=== PATIENT | male | born 1985 | race Caucasian/White ===

== ENCOUNTER 2017-02-23 15:12 | Inpatient (IN) ==
--- NOTE | 2017-02-23 15:20 | Emergency Department Note ---
Disposition Clinical Impression: Facial cellulitis Disposition: Admitted As Inpatient Condition: Good Referrals: Hans Flynn DO [Primary Care Provider] - Forms: ED Satisfaction Letter Time of Disposition: 16:11 General Adult HPI - General Chief complaint: ED Recheck/Abnormal Lab/Rx Stated complaint: Facial swelling Time Seen by Provider: 02/23/17 15:16 Source: patient Limitations: no limitations Nursing Notes Reviewed: Yes Vital Signs Reviewed: Yes - History of Present Illness HPI Narrative: 31-year-old male who was seen yesterday for facial swelling especially on the left. CT scan done yesterday was negative for acute findings lab work was all negative. He is placed on antibiotics states the swelling is worse. Pt Subjective Complaint: Swelling of the left region that has gotten progressively worse now affecti Onset (ago): day(s) Location: face Radiation: non-radiation Pain Severity: moderate Pain Scale: 7 Quality: aching Consistency: constant Improves with: nothing Worsens with: other (Time) - Related Data Previous Rx's Medication Instructions Recorded Levofloxacin [Levaquin] 500 mg PO DAILY #10 tablet 02/23/17 OxyCODONE/APAP 5/325 [Percocet 1 each PO Q6HR PRN #10 tablet 02/23/17 5/325 MG] Allergies Allergy/AdvReac Type Severity Reaction Status Date / Time Penicillins Allergy Hives Verified 02/23/17 06:58 All systems ED: reviewed and negative except as stated. Constitutional: Denies: fever, chills, weakness, weight change Eyes: Denies: eye pain, eye discharge, vision change ENT ED: Reports: other (Facial swelling and discomfort). Denies: ear pain, throat pain, dental pain, hearing loss, epistaxis, congestion, dysphagia Cardiovascular: Denies: chest pain, palpitations, dyspnea on exertion, edema, syncope Respiratory: Denies: cough, dyspnea, wheezes, hemoptysis, stridor Gastrointestinal: Denies: abdominal pain, nausea, vomiting, diarrhea, constipation, hematemesis, melena, hematochezia Genitourinary: Denies: urgency, dysuria, frequency, hematuria Musculoskeletal: Denies: back pain, neck pain, arthralgia, myalgia Integumentary: Denies: rash, abrasion, lesions Neurological: Denies: headache, weakness, numbness, paresthesias, confusion, abnormal gait, vertigo Psychiatric: Denies: anxiety, depression, suicidal thoughts, homicidal thoughts , auditory hallucinations, visual hallucinations Endocrine: Denies: fatigue Hematological/Lymphatic: Denies: easy bleeding, easy bruising Allergic/Immunologic: Denies: facial swelling, urticaria Past Medical History - Past Medical History Medical history: Reports: no medical history Psychiatric history: Reports: no psych history - Social History Smoking Status: Never smoker Smokeless Tobacco Status: Yes Alcohol use: Reports: none Drug use: Reports: none Physical Exam - General Limitations: no limitations General appearance: alert, in no apparent distress - Head Head exam: atraumatic, normocephalic, normal inspection - Eye Eye exam: Present: other (Infraorbital swelling) - ENT ENT exam: normal exam, normal oropharynx, mucous membranes moist - Neck Neck exam: Present: normal inspection, full ROM, trachea midline - Chest Chest inspection: Present: normal inspection - Respiratory Respiratory exam: Present: normal lung sounds bilaterally - Cardiovascular Cardiovascular exam: Present: regular rate, normal rhythm, normal heart sounds - Abdominal Exam Abdominal exam: Present: soft, Non-Tender. Absent: tenderness, distention, guarding, rebound, rigidity - Extremities Exam Extremities exam: Present: normal inspection, full ROM. Absent: tenderness, pedal edema - Expanded Lower Extremity Exam Neurovascular/Tendon exam: Absent: motor deficit, sensory deficit, tendon deficit Gait: observed and normal - Back Exam Back exam: Present: normal inspection, full ROM. Absent: tenderness - Neurological Exam Neurological exam: Present: alert, oriented X3 - Psychiatric Psychiatric exam: Present: normal affect, normal mood - Skin Skin exam: Present: warm, dry, intact, normal color Course - Reevaluation(s) Reevaluation #1: Patient with left-sided facial swelling is getting worse. CT scan yesterday showed no drainable abscess. Patient was evaluated by ENT who recommended admission and IV antibiotics. Nothing amenable to drainage at this time. Time: 16:10 - Consultations Consultation #1: Discussed with Dr. Cannon, ENT who came in and saw the patient, recommends admission for IV antibiotics and IV steroids. Time: 15:25 Consultation #2: Discussed with Dr. Gonzalez, admit Time: 16:11 Vital Signs Temperature 98.4 F 02/23/17 15:12 Pulse Rate 68 02/23/17 15:12 Respiratory Rate 18 02/23/17 15:12 Blood Pressure 173/103 02/23/17 15:12 O2 Sat by Pulse Oximetry 97 02/23/17 15:12 Temperature 98.4 F 02/23/17 15:12 Pulse Rate 68 02/23/17 15:12 Respiratory Rate 18 02/23/17 15:12 Blood Pressure 173/103 02/23/17 15:12 O2 Sat by Pulse Oximetry 97 02/23/17 15:12 Oxygen Delivery Oxygen Delivery Room Air Medical Decision Making - Lab Data Result diagrams: 02/23/17 15:43 02/23/17 15:43 Lab Results 02/23/17 02/23/17 02/23/17 Range/Units 15:43 15:43 15:43 WBC 8.1 (4.3-11.1) K/mcL RBC 4.63 (4.19-5.50) M/mcL Hgb 13.8 (12.9-16.9) g/dL Hct 42.3 (37.5-50.1) % MCV 91.4 (83.0-100.0) fL MCH 29.8 (28.0-33.3) pg MCHC 32.6 (31.6-35.5) g/dL RDW 12.5 (11.5-14.5) % Plt Count 177 (140-400) K/mcL MPV 10.9 (9.4-12.4) fL Immature Gran % 0.2 (0-4) % Seg Neutrophils % 74.7 % Lymphocytes % 17.6 % Monocytes % 6.3 % Eosinophils % 0.6 % Basophils % 0.6 % Neutrophils # 6.0 (1.6-8.9) K/mcL Lymphocytes # 1.4 (0.6-4.6) K/mcL Monocytes # 0.5 (0.0-1.3) K/mcL Eosinophils # 0.1 (0.0-0.6) K/mcL Basophils # 0.1 (0.0-0.2) K/mcL Immature Plt Fraction 6.1 (1.1-6.1) % ESR 35 H (0-10) mm/hr Sodium 137 (136-145) mEq/L Potassium 3.9 (3.5-4.5) mEq/L Chloride 105 (98-109) mEq/L Carbon Dioxide 25 (19-29) mEq/L BUN 11 (8-26) mg/dL Creatinine 0.86 (0.72-1.25) mg/dL Est GFR ( Amer) > 60 (> 60) Est GFR (Non-Af Amer) > 60 (> 60) BUN/Creatinine Ratio 13 (6-26) Glucose 136 H (70-99) mg/dL Calculated Osmolality 285 (280-300) Calcium 8.4 L (8.6-10.8) mg/dL
[2017-02-23 15:50] LABS: Basophils # 0.1 K/mcL (0.0-0.2); Basophils % 0.6 %; Eosinophils # 0.1 K/mcL (0.0-0.6); Eosinophils % 0.6 %; Hematocrit 42.3 % (37.5-50.1); Hemoglobin 13.8 g/dL (12.9-16.9); Immature Granulocytes % 0.2 % (0-4); Immature Platelets 6.1 % (1.1-6.1); Lymphocytes # 1.4 K/mcL (0.6-4.6); Lymphocytes % 17.6 %; Mean Corpuscular HGB Conc 32.6 g/dL (31.6-35.5); Mean Corpuscular Hemoglobin 29.8 pg (28.0-33.3); Mean Corpuscular Volume 91.4 fL (83.0-100.0); Mean Platelet Volume 10.9 fL (9.4-12.4); Monocytes # 0.5 K/mcL (0.0-1.3); Monocytes % 6.3 %; Platelet Count 177 K/mcL (140-400); Red Blood Count 4.63 M/mcL (4.19-5.50); Red Cell Distribution Width 12.5 % (11.5-14.5); Segmented Neutrophils % 74.7 %
[2017-02-23 16:01] LABS: BUN/Creatinine Ratio 13 (6-26); Blood Urea Nitrogen 11 mg/dL (8-26); Calcium 8.4 mg/dL (8.6-10.8); Carbon Dioxide 25 mEq/L (19-29); Chloride 105 mEq/L (98-109); Glucose 136 mg/dL (70-99); Osmolality,Calculated 285 (280-300); Potassium 3.9 mEq/L (3.5-4.5); Sodium 137 mEq/L (136-145); eGFR For African Americans > 60 (> 60); eGFR For Non-African Americans > 60 (> 60)
[2017-02-23] MEDS ORDERED: Levofloxacin 750 MG/150 ML 750 MG/150 ML BAG IVPB ONE (16:05)
--- NOTE | 2017-02-23 16:05 | ENT - Consult Note ---
Date of Encounter: 02/23/17 Time of Encounter: 15:45 Assessment and Plan (1) Facial cellulitis Current Visit: Yes Status: Acute White male with several days of progression of left facial swelling at site of buccal space possible early cellulitis which may abscess because of proximity to danger zone consider IV antibiotics if not improved consider a consult in ENT for possible consideration for incision and drainage also the integrity of the left maxillary teeth might need to be considered with full dental evaluation after taking care of the initial problem I will inform the ENT clinic of this patient's admission History of Present Illness Consult date: 02/23/17 History of present illness: 31-year-old white male with several days of left-sided swelling was seen in the emergency room yesterday had a white count which was unremarkable and CT that was read as unremarkable revealing a little bit of swelling in the left anterior face the site of the swelling and tenderness was most consistent with a buccal cellulitis early abscess but the teeth are unremarkable recommending at this point consideration of IV antibiotics because patient has tried Cefdinir and by mouth Levaquin without improvement recommending admission with trial of Levaquin and steroids and pain medications Past Med Surg Social Fam HX - Past Medical History Medical history: no medical history Psychiatric history: no psych history - Social History Smoking Status: Never smoker Smokeless Tobacco Status: Yes Alcohol use: none Drug use: none Medications and Allergies Levofloxacin [Levaquin] 500 mg PO DAILY #10 tablet 02/23/17 [Rx] OxyCODONE/APAP 5/325 [Percocet 5/325 MG] 1 each PO Q6HR PRN #10 tablet 02/23/17 [Rx] 3 Allergy/AdvReac Type Severity Reaction Status Date / Time Penicillins Allergy Hives Verified 02/23/17 06:58 ENT Exam Initial Vital Signs Temp Pulse Resp BP Pulse Ox 98.4 F 68 18 173/103 97 02/23/17 15:12 02/23/17 15:12 02/23/17 15:12 02/23/17 15:12 02/23/17 15:12 - General physical appearance well developed, well nourished, no distress, no pain, other (Left facial swelling and firmness with no obvious abscess CT yesterday no obvious abscess). negative: moderate distress, severe distress, moderate pain, severe pain, cachectic, obese - Eyes PERRL, normal ocular movement, icteric - ENT normal pinna, normal nares, normal mucosa, no hearing loss, no congestion. negative: decreased hearing, deviated nasal septum, nasal discharge, poor fpc, dentures, mucosal exudate, dry mucosa - Neck no masses, trachea midline, no lymphadectomy. negative: deviated trachea, diffuse goiter, limited ROM - Respiratory normal expansion, normal respiratory effort, clear to percussion, clear to auscultation - Abdomen Abdomen: soft, non tender, bowel sounds, no tender, no surgical scars - Integumentary no rash, no growths, no abnormal pigmentation - Neurologic normal coordination, normal sensation - Musculoskeletal normal gait, normal posture Exam Initial Vital Signs Temp Pulse Resp BP Pulse Ox 98.4 F 68 18 173/103 97 02/23/17 15:12 02/23/17 15:12 02/23/17 15:12 02/23/17 15:12 02/23/17 15:12 Results - Labs 02/23/17 15:43 02/23/17 15:43 Abnormal lab results ESR 35 mm/hr (0-10) H 02/23/17 15:43 Glucose 136 mg/dL (70-99) H 02/23/17 15:43 Calcium 8.4 mg/dL (8.6-10.8) L 02/23/17 15:43 Diabetes panel 02/23/17 Range/Units 15:43 Sodium 137 (136-145) mEq/L Potassium 3.9 (3.5-4.5) mEq/L Chloride 105 (98-109) mEq/L Carbon Dioxide 25 (19-29) mEq/L BUN 11 (8-26) mg/dL Creatinine 0.86 (0.72-1.25) mg/dL Glucose 136 H (70-99) mg/dL Calcium 8.4 L (8.6-10.8) mg/dL Calcium panel 02/23/17 Range/Units 15:43 Calcium 8.4 L (8.6-10.8) mg/dL Pituitary panel 02/23/17 Range/Units 15:43 Sodium 137 (136-145) mEq/L Potassium 3.9 (3.5-4.5) mEq/L Chloride 105 (98-109) mEq/L Carbon Dioxide 25 (19-29) mEq/L BUN 11 (8-26) mg/dL Creatinine 0.86 (0.72-1.25) mg/dL Glucose 136 H (70-99) mg/dL Calcium 8.4 L (8.6-10.8) mg/dL Adrenal panel 02/23/17 Range/Units 15:43 Sodium 137 (136-145) mEq/L Potassium 3.9 (3.5-4.5) mEq/L Chloride 105 (98-109) mEq/L Carbon Dioxide 25 (19-29) mEq/L BUN 11 (8-26) mg/dL Creatinine 0.86 (0.72-1.25) mg/dL Glucose 136 H (70-99) mg/dL Calcium 8.4 L (8.6-10.8) mg/dL All other labs normal. Consult Discharge Plan - Plan
[2017-02-23] MEDS ORDERED: Dexamethasone 4 MG/ML VIAL IVP ONE (16:13)
[2017-02-23] MEDS ORDERED: 0.9 % Sodium Chloride 1,000 ML IVC SCH (17:30)
[2017-02-23] MEDS ORDERED: Acetaminophen 325 MG TABLET PO PRN (19:29)
[2017-02-23] MEDS ORDERED: Ondansetron 4 MG/2 ML VIAL IVP PRN (19:29)
[2017-02-23] MEDS ORDERED: Naloxone 0.4 MG/ML INJ IVP PRN (19:29)
[2017-02-23] MEDS ORDERED: *HR* Morphine 2 MG/ML SYRINGE IVP PRN (19:29)
--- NOTE | 2017-02-23 19:42 | Internal Med History&Physical ---
Date of Encounter: 02/23/17 Time of Encounter: 19:30 Assessment and Plan (1) Facial cellulitis Current visit: Yes Status: Acute Acute left facial cellulitis without abscess - unclear etiology Continue empiric IV Vancomycin, IV Levaquin, IV fluids, Ibuprofen PRN Patient is allergic to penicillins IV Solu-Medrol as recommended by ENT Facial CT - no evidence for acute abnormality, no abnormality of soft tissues ESR - 35 WBC - 8.1 Blood cultures - pending ENT consult - Dr. Cannon has evaluated patient Labs in a.m., monitor closely (2) DVT prophylaxis Current visit: Yes Status: Acute Heparin subcutaneous Internal Medicine - H&P: HPI Chief complaint: Left facial pain and swelling Admitted From: Emergency Dept Plans for Post Hospital Care: Home History of present illness: Mr. Rhodes is a 31 year old male with no significant past medical history. Patient presents to the ED with complaints of pain and swelling over the left side of his face and left eye. Examined in the room. Patient is awake and alert. Not in any distress. Able to provide all history. No family members at bedside. Patient states he developed left-sided facial pain about 4-5 days ago. He was initially taking Clindamycin which was prescribed from a previous surgery, and this did not help. Patient initially came to the ED earlier this morning, was prescribed Levaquin and then discharged home. Patient returned in the afternoon with worsening swelling of the left side of his face extending to his left eye. Patient rates the pain 6/10. Symptoms are gradually worsening. Describes the pain as burning. She also complains of redness. He denies having any recent dental procedures. He states he last dental procedure he had was in May of this year. He denies any insect bite or trauma or injury. He denies any tooth pain or gingival problems. Denies chest pain or shortness of breath. Denies fever. No abdominal pain or vomiting or diarrhea. No aggravating or alleviating factors. No other associated symptoms. No other acute complaints. Initial workup in the ED is negative. Facial CT done earlier today does not show any acute abnormality of the face, CT is unremarkable. Patient is being admitted for left facial cellulitis. He will need IV antibiotic. Patient is allergic to penicillin. We will continue IV Vancomycin and IV Levaquin. Patient has been explained about his condition and plan of care in detail. He understood and agreed. No unanswered questions. CODE STATUS full code. Past Med Surg Social Fam HX - Past Medical History Medical history: no medical history Psychiatric history: no psych history - Past Surgical History Surgical History: other (Lumbar fusion) - Social History Smoking Status: Never smoker Smokeless Tobacco Status: Yes Alcohol use: none Drug use: none - Family History Mother History Unknown: Yes Living Status: Still Living Internal Medicine - H&P: Meds No Known Home Drugs 02/23/17 [History] 3 Allergy/AdvReac Type Severity Reaction Status Date / Time Penicillins Allergy Hives Verified 02/23/17 06:58 All Systems PM: A 10-system review of systems was performed and is negative for pertinent findings except as documented above in the HPI. - Constitutional Constitutional: no fatigue, no fever(s), no weakness - EENT Eyes: no blurry vision Additional comments: Left facial pain, swelling and redness. Swelling around the left eye and eyelids. Nose, mouth and throat: facial pain, no bleeding gums, no dental pain, no post- nasal drip, no sinus pain, no sore throat, no throat swelling, no tongue swelling - Cardiovascular Cardiovascular ROS IM: no chest pain, no dyspnea, no dyspnea on exertion, no edema, no lightheadedness, no orthopnea, no palpitations, no syncope - Respiratory Respiratory: no cough, no dyspnea, no dyspnea on exertion, no wheezing, no chest congestion - Gastrointestinal Gastrointestinal: no abdominal pain, no cramping, no diarrhea, no loose stools, no nausea, no vomiting - Genitourinary Genitourinary ROS male: no dysuria - Neurological Neurological ROS: no abnormal gait, no convulsions, no dizziness, no loss of vision, no numbness, no tingling - Constitutional Vitals: Temp Pulse Resp BP Pulse Ox 98.3 F 82 16 143/83 95 02/23/17 19:31 02/23/17 19:31 02/23/17 19:31 02/23/17 19:31 02/23/17 19:31 General appearance: Present: cooperative, A&O X 3, pleasant, no acute distress, obese, answers questions appropriately - Head Head exam: Present: atraumatic Additional comments: Patient has obvious left side facial swelling with tenderness. Mainly over the maxillary region on the left side. Extending to the left eyelids. Erythema present. Patient is able to open his left eye without any difficulty. - Eye Eye exam: Present: EOMI, periorbital swelling, periorbital tenderness, PERRL. Absent: sclera anicteric - ENT ENT exam: Present: mucous membranes moist - Expanded ENT Exam Teeth exam: Present: normal external inspection. Absent: dental caries, dental tenderness #, gingival enlargement - Neck Neck exam general surgery: Present: full ROM - Respiratory Respiratory exam: Present: CTAB. Absent: rales, respiratory distress, rhonchi, wheezes, tachypnea - Cardiovascular Cardiovascular exam: Present: RRR, +S1, +S2 - GI/Abdominal GI/Abdominal exam: Present: soft. Absent: distended, firm, guarding, tenderness - Extremities Exam Extremities exam: Present: radial pulses palpable and symmetrical. Absent: calf tenderness, cyanotic, pedal edema - Neurological Exam Neurological exam: Present: alert, oriented X3, no focal deficits. Absent: facial droop, speech deficit Internal Med - H&P Results - Labs CBC & Chem 7: 02/23/17 15:43 02/23/17 15:43
[2017-02-23] MEDS ORDERED: Vancomycin 1,000 MG in D5% in Water 250 ML IVPB SCH (20:00)
[2017-02-23 20:21] LABS: INR 1.1; Prothrombin Time 12.3 Seconds (9.4-12.1)
[2017-02-23] MEDS ORDERED: Ibuprofen 600 MG TABLET PO PRN (21:20)
[2017-02-23] MEDS: *HR* Heparin 5,000 UNIT/ML VIAL SQ SCH (22:14)
[2017-02-23] MEDS: Vancomycin 1,750 MG in D5% in Water 500 ML IVPB SCH (22:15)
[2017-02-23 23:12] LABS: Bilirubin,Urine Negative (Negative); Blood,Urine Negative (Negative); Clarity,Urine Clear (Clear); Color,Urine Yellow (Yellow); Glucose,Urine (UA) 250 mg/dL (Normal); Ketones,Urine Negative (Negative); Leukocyte Esterase,Urine Negative (Negative); Nitrite,Urine Negative (Negative); PH,Urine 7.5 pH Units (5.0-8.0); Protein,Urine Negative (Neg-Trace); Specific Gravity,Urine 1.018 (1.010-1.025); Urobilinogen,Urine Normal (Normal)
[2017-02-24] MEDS: MethylPREDNISolone 40 MG/ML VIAL IVP SCH ×4 (00:42→23:45)
[2017-02-24 05:03] LABS: Basophils % 0.2 %; Hematocrit 44.8 % (37.5-50.1); Hemoglobin 14.6 g/dL (12.9-16.9); Immature Granulocytes % 0.3 % (0-4); Lymphocytes # 0.7 K/mcL (0.6-4.6); Lymphocytes % 5.8 %; Mean Corpuscular HGB Conc 32.6 g/dL (31.6-35.5); Mean Corpuscular Hemoglobin 29.6 pg (28.0-33.3); Mean Corpuscular Volume 90.9 fL (83.0-100.0); Mean Platelet Volume 11.4 fL (9.4-12.4); Monocytes # 0.1 K/mcL (0.0-1.3); Monocytes % 0.7 %; Platelet Count 212 K/mcL (140-400); Red Blood Count 4.93 M/mcL (4.19-5.50); Red Cell Distribution Width 12.2 % (11.5-14.5)
[2017-02-24 05:17] LABS: BUN/Creatinine Ratio 14 (6-26); Blood Urea Nitrogen 12 mg/dL (8-26); Calcium 9.5 mg/dL (8.6-10.8); Carbon Dioxide 23 mEq/L (19-29); Chloride 106 mEq/L (98-109); Glucose 173 mg/dL (70-99); Osmolality,Calculated 286 (280-300); Potassium 4.2 mEq/L (3.5-4.5); Sodium 136 mEq/L (136-145); eGFR For African Americans > 60 (> 60); eGFR For Non-African Americans > 60 (> 60)
[2017-02-24 05:18] LABS: Neutrophils # 11.4 K/mcL (1.6-8.9)
[2017-02-24] MEDS: *HR* Heparin 5,000 UNIT/ML VIAL SQ SCH ×2 (05:21→17:04)
[2017-02-24] MEDS: Famotidine 20 MG/2 ML VIAL IVP SCH ×2 (05:21→17:03)
[2017-02-24] MEDS: Vancomycin 1,750 MG in D5% in Water 500 ML IVPB SCH ×3 (05:21→23:45)
[2017-02-24] MEDS: 0.9 % Sodium Chloride 1,000 ML IVC SCH ×2 (09:26→09:33)
[2017-02-24] MEDS: Levofloxacin 750 MG/150 ML 750 MG/150 ML BAG IVPB SCH (09:28)
--- NOTE | 2017-02-24 10:59 | ENT - Progress Note ---
<Radha Leiva - Last Filed: 02/24/17 11:40> Date of Encounter: 02/24/17 Time of Encounter: 10:56 - Assessment and Plan (1) Facial cellulitis Current Visit: Yes Status: Acute Patient seen and examined at bedside today. Patient noted to have left facial swelling, reported by patient and family as decreased since admission. He denies any trauma to the face or any new environmental exposures. Patient reports mild pain in the affected area, decreased from previous. Patient also noted to have left mild periorbital facial edema in the inferior area of the eye. Patient denies blurred vision of the left eye, drainage, or or any other issues with the eye at this time. Patient noted have a slight increase in white blood cells this a.m. this is likely a false elevation due to steroids. Recommend to continue IV steroids and current IV antibiotic regimen at this time. Subjective Patient reports: feels better, pain is less, tolerating liquids well, tolerating a regular diet, afebrile Objective Initial Vital Signs Temp Pulse Resp BP Pulse Ox 98.4 F 68 18 173/103 97 02/23/17 15:12 02/23/17 15:12 02/23/17 15:12 02/23/17 15:12 02/23/17 15:12 - General physical appearance well developed, well nourished, no distress - Eyes PERRL, normal ocular movement - ENT normal mucosa, CN 2-12 grossly intact, Other (left facial swelling and firmness noted, with mild periorbital edema noted in the inferior lacrimal area, turbinates of the left nare noted to be red and inflamed, TM's normal bilaterally, teeth in good repair. ) - Neck no masses, trachea midline, no lymphadectomy - Respiratory normal respiratory effort - Labs 02/24/17 04:15 02/24/17 04:15 Diabetes panel 02/24/17 Range/Units 04:15 Sodium 136 (136-145) mEq/L Potassium 4.2 (3.5-4.5) mEq/L Chloride 106 (98-109) mEq/L Carbon Dioxide 23 (19-29) mEq/L BUN 12 (8-26) mg/dL Creatinine 0.86 (0.72-1.25) mg/dL Glucose 173 H (70-99) mg/dL Calcium 9.5 (8.6-10.8) mg/dL Calcium panel 02/24/17 Range/Units 04:15 Calcium 9.5 (8.6-10.8) mg/dL Pituitary panel 02/24/17 Range/Units 04:15 Sodium 136 (136-145) mEq/L Potassium 4.2 (3.5-4.5) mEq/L Chloride 106 (98-109) mEq/L Carbon Dioxide 23 (19-29) mEq/L BUN 12 (8-26) mg/dL Creatinine 0.86 (0.72-1.25) mg/dL Glucose 173 H (70-99) mg/dL Calcium 9.5 (8.6-10.8) mg/dL Adrenal panel 02/24/17 Range/Units 04:15 Sodium 136 (136-145) mEq/L Potassium 4.2 (3.5-4.5) mEq/L Chloride 106 (98-109) mEq/L Carbon Dioxide 23 (19-29) mEq/L BUN 12 (8-26) mg/dL Creatinine 0.86 (0.72-1.25) mg/dL Glucose 173 H (70-99) mg/dL Calcium 9.5 (8.6-10.8) mg/dL Consult Discharge Plan - Plan Referrals: Hans Flynn, [Primary Care Provider] - <Katiana Dawn - Last Filed: 02/24/17 15:46> Date of Encounter: 02/24/17 - Assessment and Plan (1) Facial cellulitis Current Visit: Yes Status: Acute Agree with above Patient with no evidence of abscess formation on CT scan or on physical examination. Patient with significant improvement of his symptoms over the past 24 hours. Due to location of the cellulitis would be suspicious of MRSA infection and would recommend coverage with Bactrim as outpatient once he has recieved 48hours of IV antibiotics in house. Patient to follow up with ENT or Family Doctor in 1-2 weeks following discharge. Objective Initial Vital Signs Temp Pulse Resp BP Pulse Ox 98.4 F 68 18 173/103 97 02/23/17 15:12 02/23/17 15:12 02/23/17 15:12 02/23/17 15:12 02/23/17 15:12 - Labs 02/24/17 04:15 02/24/17 04:15 Diabetes panel 02/24/17 Range/Units 04:15 Sodium 136 (136-145) mEq/L Potassium 4.2 (3.5-4.5) mEq/L Chloride 106 (98-109) mEq/L Carbon Dioxide 23 (19-29) mEq/L BUN 12 (8-26) mg/dL Creatinine 0.86 (0.72-1.25) mg/dL Glucose 173 H (70-99) mg/dL Calcium 9.5 (8.6-10.8) mg/dL Calcium panel 02/24/17 Range/Units 04:15 Calcium 9.5 (8.6-10.8) mg/dL Pituitary panel 02/24/17 Range/Units 04:15 Sodium 136 (136-145) mEq/L Potassium 4.2 (3.5-4.5) mEq/L Chloride 106 (98-109) mEq/L Carbon Dioxide 23 (19-29) mEq/L BUN 12 (8-26) mg/dL Creatinine 0.86 (0.72-1.25) mg/dL Glucose 173 H (70-99) mg/dL Calcium 9.5 (8.6-10.8) mg/dL Adrenal panel 02/24/17 Range/Units 04:15 Sodium 136 (136-145) mEq/L Potassium 4.2 (3.5-4.5) mEq/L Chloride 106 (98-109) mEq/L Carbon Dioxide 23 (19-29) mEq/L BUN 12 (8-26) mg/dL Creatinine 0.86 (0.72-1.25) mg/dL Glucose 173 H (70-99) mg/dL Calcium 9.5 (8.6-10.8) mg/dL
--- NOTE | 2017-02-24 19:08 | Internal Med Progress Note ---
Date of Encounter: 02/24/17 Time of Encounter: 11:00 - Assessment and plan (1) Facial cellulitis Current Visit: Yes Status: Acute Assessment and plan: Patient presented to the emergency room twice yesterday. The first time he was diagnosed with sinusitis and was discharged with Levaquin by mouth. A few hours later he returned to the emergency department with complaints of pain, redness and swelling over the left side of face and left eye. She reports onset of pain was 4-5 days prior to admission. He was initially taking clindamycin from her previous surgery and that did not help. His second presentation to the emergency room, the redness and swelling have become worse and extended up to his left eye with increasing pain that he rated 6/10. He described the pain as burning. He denies any recent dental procedures and denies any dental abscesses or gingival problems. His teeth are intact and well maintained. He denies fever, chills, shortness of breath or chest pain. No headache, dizziness, blurred vision or near syncope. He denies any nausea, vomiting, abdominal pain. Facial CT was no evidence for acute abnormality of the soft tissues. He had mild leukocytosis of 12.2. He had no fever, tachycardia, hypotension. He is not requiring supplemental oxygen. He does not meet Sirs criteria. ENT is following. I appreciate the recommendation consultation. They recommend continuing IV steroids and IV antibiotic regimen for 48 hours. After this time, if patient has improved clinically and feels better, he most likely will be able to discharge. (2) DVT prophylaxis Current Visit: Yes Status: Acute Assessment and plan: Heparin subcutaneous. Encourage ambulation. - Time Spent With Patient less than 15 minutes - Subjective Interval history: Patient was seen and assessed at bedside multiple times today, the first time was at 11 AM. Girlfriend is at bedside and multiple questions were answered. Girlfriend asked most of the questions and appeared to be slightly agitated at times due to her perception that patient was forced to be admitted because the ER physician was mad at her, that he was not able to leave and go out to dinner then come back to continue treatment, that they have been told that he had multiple different diagnoses despite several providers telling them he had cellulitis, and that standard of care was 48 hours of IV antibiotics after girlfriend insisted that ENT NEIGHBORHOOD AIDE stated that pt could go home today. All questions were answered by RN, ENT NEIGHBORHOOD AIDE, and myself. Patient denies nausea, vomiting, diarrhea, vision changes or headache. He denies abdominal pain, fever or chills. - Constitutional Vitals: Temp Pulse Resp BP Pulse Ox 97.9 F 95 18 158/77 93 02/24/17 15:45 02/24/17 15:45 02/24/17 15:45 02/24/17 15:45 02/24/17 15:45 General appearance: Present: cooperative, A&O X 3, pleasant, no acute distress, obese, answers questions appropriately - Head Head exam: Present: atraumatic, normal inspection, normocephalic - Eye Eye exam: Present: normal appearance, conjuntiva pink, sclera anicteric - Neck Neck exam general surgery: Present: supple, trachea midline. Absent: lymphadenopathy - Respiratory Respiratory exam: Present: CTAB. Absent: accessory muscle use, rales, rhonchi, wheezes - Cardiovascular Cardiovascular exam: Present: RRR, +S1, +S2. Absent: diastolic murmur, gallop, rubs, systolic murmur - GI/Abdominal GI/Abdominal exam: Present: normal bowel sounds, soft. Absent: distended, guarding, tenderness - Extremities Exam Extremities exam: Present: warm, radial pulses palpable and symmetrical. Absent : calf tenderness, cyanotic, normal capillary refill, pedal edema, tenderness - Neurological Exam Neurological exam: Present: alert, oriented X3, no focal deficits. Absent: facial droop, speech deficit - Skin Skin exam: Present: dry, intact, normal color, warm. Absent: rash Internal Medicine: Result - Labs CBC & Chem 7: 02/24/17 04:15 02/24/17 04:15 Labs: Short CBC 02/24/17 Range/Units 04:15 WBC 12.2 H D (4.3-11.1) K/mcL Hgb 14.6 (12.9-16.9) g/dL Hct 44.8 (37.5-50.1) % Plt Count 212 (140-400) K/mcL Neutrophils # 11.4 H (1.6-8.9) K/mcL BMP 02/24/17 04:15 Sodium 136 Potassium 4.2 Chloride 106 Carbon Dioxide 23 BUN 12 Creatinine 0.86 Glucose 173 H Calcium 9.5 Urine 02/23/17 Range/Units 22:55 Urine Color Yellow (Yellow) Urine Clarity Clear (Clear) Urine pH 7.5 (5.0-8.0) pH Units Ur Specific [place] 1.018 (1.010-1.025) Urine Protein Negative (Neg-Trace) mg/dL Urine Glucose (UA) 250 H (Normal) mg/dL - ABG Interpretation ABG results: PT/INR, D-dimer PT 12.3 Seconds (9.4-12.1) H 02/23/17 15:43 Consult Discharge Plan - Plan Referrals: Hans Flynn DO [Primary Care Provider] -
--- NOTE | 2017-02-24 20:31 | Electrocardiograph Report ---
[address] [address] Test Date: 2017-02-24 Pat Name: Joe Rhodes Department: 113 Room: 3B38 Gender: M [employer]: : 1985 Requested By: Hunter Pickering Order Number: [id number] Reading MD: Lang Auguste MD Measurements Intervals [place] Rate: 76 P: 32 UT: 171 QRS: 7 QRSD: 105 T: 10 QT: 391 QTc: 421 Interpretive Statements SINUS RHYTHM LEFT VENTRICULAR HYPERTROPHY AND ST-T CHANGE Electronically Signed On 02-24-2017 20:29:35 EST by Lang Auguste MD
[2017-02-25] MEDS: *HR* Heparin 5,000 UNIT/ML VIAL SQ SCH (05:32)
[2017-02-25] MEDS: Famotidine 20 MG/2 ML VIAL IVP SCH (05:32)
[2017-02-25] MEDS: Vancomycin 1,750 MG in D5% in Water 500 ML IVPB SCH ×2 (05:33→13:42)
[2017-02-25 06:00] LABS: Basophils % 0.1 %; Hematocrit 42.4 % (37.5-50.1); Hemoglobin 13.9 g/dL (12.9-16.9); Immature Granulocytes % 0.5 % (0-4); Immature Platelets 6.5 % (1.1-6.1); Lymphocytes % 5.6 %; Mean Corpuscular HGB Conc 32.8 g/dL (31.6-35.5); Mean Corpuscular Hemoglobin 29.8 pg (28.0-33.3); Mean Corpuscular Volume 90.8 fL (83.0-100.0); Mean Platelet Volume 11.2 fL (9.4-12.4); Monocytes # 0.6 K/mcL (0.0-1.3); Monocytes % 3.1 %; Nucleated Red Blood Cells 0.2 /100 WBC (0); Platelet Count 221 K/mcL (140-400); Red Blood Count 4.67 M/mcL (4.19-5.50); Red Cell Distribution Width 12.7 % (11.5-14.5); Segmented Neutrophils % 90.7 %
[2017-02-25 06:01] LABS: Lymphocytes # 1.1 K/mcL (0.6-4.6)
[2017-02-25 06:22] LABS: BUN/Creatinine Ratio 16 (6-26); Blood Urea Nitrogen 14 mg/dL (8-26); Calcium 9.1 mg/dL (8.6-10.8); Carbon Dioxide 24 mEq/L (19-29); Chloride 105 mEq/L (98-109); Glucose 188 mg/dL (70-99); Osmolality,Calculated 289 (280-300); Sodium 137 mEq/L (136-145); eGFR For African Americans > 60 (> 60); eGFR For Non-African Americans > 60 (> 60)
[2017-02-25] MEDS: MethylPREDNISolone 40 MG/ML VIAL IVP SCH (08:23)
[2017-02-25] MEDS: Levofloxacin 750 MG/150 ML 750 MG/150 ML BAG IVPB SCH (08:23)
[2017-02-25 11:07] VITALS: BP 148/68
--- NOTE | 2017-02-25 11:27 | Discharge Summary ---
Date of Encounter: 02/26/17 Time of Encounter: 11:25 - Discharge Diagnosis (1) Facial cellulitis Priority: Primary Status: Acute Comments: Joe Rhodes is a 31 female with no significant PMH who presented to [facility] on with complaints of left facial swelling. He was found to have facial cellulitis and was admitted for IV ATB. 1. Facial Cellulitis: seen in ER for complaints of left facial swelling the day prior; was discharged on Levaquin. Returned to ER with worsening left facial swelling. Facial CT non-acute, specifically no findings to suggest abnormality of the soft tissues of the left face. IV Vanco and steroids started on admissions (received 5 doses IV Vanco). Evaluated by ENT who recommended Bactrim and steroid taper at discharge. Will need to follow-up with PCP within 1 -2 weeks. 2. Leukocytosis: WBC 18K, lactic acid normal. Afebrile, no tachycardia or hypotension. Likely steroid induced - Discharge Medications Prescriptions: predniSONE [PredniSONE] 10 mg PO DAILY #18 tablet Sulfamethoxazole/Trimeth DS [Bactrim DS] 1 each PO BID #14 tablet Home Medications: Sulfamethoxazole/Trimeth DS [Bactrim DS] 1 each PO BID #14 tablet 02/25/17 [Rx] predniSONE [PredniSONE] 10 mg PO DAILY #18 tablet 02/25/17 [Rx] Allergies/Adverse Reactions: 3 Allergy/AdvReac Type Severity Reaction Status Date / Time Penicillins Allergy Hives Verified 02/23/17 06:58 Date of admission: 02/23/17 19:31 Primary care physician: Hans Flynn, Consults: 02/23/17 19:34 Consult to ENT [CONS] Routine Consulting Provider: ANTONIO Mortensen Reason for Consult: facial cellulitis Call Completed: No Discharging clinician: Barb Erickson Anticipated date of discharge: 02/25/17 - Patient Status Disposition: Home, Self-Care Functional capacity at discharge: independent ambulation Overall status at discharge: patient is progressing back to baseline - Discharge Instructions Instructions: Sulfamethoxazole/Trimethoprim (By mouth), Prednisone (By mouth), Cellulitis (DC), Orbital Cellulitis (DC), Periorbital Cellulitis in Adults (DC) Follow Up With: Hans Flynn DO [Primary Care Provider] - 03/06/17 9:30 am Forms: Inpatient Work/School Release - Diet and Activity Activity: increase activity as tolerated Diet: advance to your usual diet Interval History: Seen and examined at bedside, patient says he feels much better and wants to discharge home. Says he has a little swelling but overall improved. Has a little pain and discomfort to left side of face. No vision changes, no headache. Hospital course: See assessment and plan for hospital course - Time Spent with Patient Total time spent providing and/or coordinating discharge services: Greater than 30 minutes (36 minutes spent on discharge) - Constitutional Vitals: Temp Pulse Resp BP Pulse Ox 97.9 F 89 16 148/68 94 02/25/17 11:04 02/25/17 11:04 02/25/17 11:04 02/25/17 11:04 02/25/17 11:04 General appearance: Present: cooperative, A&O X 3, pleasant, no acute distress, obese, answers questions appropriately - Head Head exam: Present: atraumatic, normocephalic - Eye Eye exam: Present: PERRL, conjuntiva pink, sclera anicteric Pupils: Present: PERRL - Neck Neck exam general surgery: Present: supple, trachea midline. Absent: lymphadenopathy - Respiratory Respiratory exam: Present: CTAB. Absent: accessory muscle use, rales, rhonchi, wheezes - Cardiovascular Cardiovascular exam: Present: RRR, +S1, +S2. Absent: diastolic murmur, gallop, rubs, systolic murmur - GI/Abdominal GI/Abdominal exam: Present: normal bowel sounds, soft, no peritoneal signs. Absent: distended, tenderness - Extremities Exam Extremities exam: Present: warm, radial pulses palpable and symmetrical. Absent : calf tenderness, cyanotic, pedal edema - Neurological Exam Neurological exam: Present: CN II-XII intact, oriented X3, no focal deficits. Absent: pronater drift, facial droop, speech deficit - Skin Skin exam: Present: dry, intact
--- NOTE | 2017-02-25 11:41 | ENT - Progress Note ---
Date of Encounter: 02/25/17 Time of Encounter: 11:39 - Assessment and Plan (1) Facial cellulitis Current Visit: Yes Status: Acute Patient seen and examined at bedside today. Facial swelling much improved from yesterday, with only minimal swelling and a small area of induration noted to maxillary region. Patient has no periorbital swelling today. He denies any pain at this time. Patient is tolerating fluids and a regular diet appropriately. Patient noted again to have a slight increase in white blood cells this a.m., again likely a false elevation due to IV steroids. As recommended previously, patient should be discharged with appropriate antibiotic with MRSA coverage and steroids at discharge. May follow up with ENT or primary care provider. Patient appropriate for discharge from ENT perspective. Subjective Patient reports: no new complaints, feels better, pain is less, tolerating liquids well, tolerating a regular diet, afebrile Objective Initial Vital Signs Temp Pulse Resp BP Pulse Ox 98.4 F 68 18 173/103 97 02/23/17 15:12 02/23/17 15:12 02/23/17 15:12 02/23/17 15:12 02/23/17 15:12 - General physical appearance well developed, well nourished, no distress - Eyes normal ocular movement - ENT normal nares, normal mucosa, CN 2-12 grossly intact, Other (no periorbital edema noted today, minimal induration and swelling noted to left maxillary area , no redness. ) - Neck no masses, trachea midline, no lymphadectomy - Respiratory normal respiratory effort - Labs 02/25/17 05:22 02/25/17 05:22 Diabetes panel 02/25/17 Range/Units 05:22 Sodium 137 (136-145) mEq/L Potassium 4.0 (3.5-4.5) mEq/L Chloride 105 (98-109) mEq/L Carbon Dioxide 24 (19-29) mEq/L BUN 14 (8-26) mg/dL Creatinine 0.87 (0.72-1.25) mg/dL Glucose 188 H (70-99) mg/dL Calcium 9.1 (8.6-10.8) mg/dL Calcium panel 02/25/17 Range/Units 05:22 Calcium 9.1 (8.6-10.8) mg/dL Pituitary panel 02/25/17 Range/Units 05:22 Sodium 137 (136-145) mEq/L Potassium 4.0 (3.5-4.5) mEq/L Chloride 105 (98-109) mEq/L Carbon Dioxide 24 (19-29) mEq/L BUN 14 (8-26) mg/dL Creatinine 0.87 (0.72-1.25) mg/dL Glucose 188 H (70-99) mg/dL Calcium 9.1 (8.6-10.8) mg/dL Adrenal panel 02/25/17 Range/Units 05:22 Sodium 137 (136-145) mEq/L Potassium 4.0 (3.5-4.5) mEq/L Chloride 105 (98-109) mEq/L Carbon Dioxide 24 (19-29) mEq/L BUN 14 (8-26) mg/dL Creatinine 0.87 (0.72-1.25) mg/dL Glucose 188 H (70-99) mg/dL Calcium 9.1 (8.6-10.8) mg/dL Consult Discharge Plan - Plan Instructions: Cellulitis (DC), Orbital Cellulitis (DC), Periorbital Cellulitis in Adults (DC) Referrals: Hans Flynn DO [Primary Care Provider] - Prescriptions: predniSONE [PredniSONE] 10 mg PO DAILY #18 tablet Sulfamethoxazole/Trimeth DS [Bactrim DS] 1 each PO BID #14 tablet
[2017-02-25] MEDS ORDERED: Aminoglycoside Consult 1 EACH MC ONE (15:31)
== END 2017-02-25 15:32 | disposition home or self-care (01) | DRG 603 ==
LOC: 3BNU 15:12 → EMEROO 15:12 → 3BNU 16:49
PROVIDERS: ADMIT Internal Medicine; ATTEND Registered Nurse